=== PATIENT | male | born 1945 | race Caucasian/White ===

== ENCOUNTER 2018-11-09 13:11 | Inpatient (IN) | payer OTHER ==
[~2018-11-09] VITALS: Ht 175.3 cm; Wt 68.0 kg
[2018-11-09 13:19] VITALS: BP 125/50
[2018-11-09] MEDS ORDERED: KLOR-CON 1010 MEQ PO (13:36)
[2018-11-09] MEDS ORDERED: PLAVIX 75 MG TA75 M1 PO ×2 (13:36→13:43)
[2018-11-09] MEDS ORDERED: METFORMIN HCL500 MG PO (13:42)
[2018-11-09] MEDS ORDERED: SIMVASTATIN40 MG PO (13:43)
[2018-11-09] MEDS ORDERED: FLOMAX0.4 MG PO (13:43)
[2018-11-09] MEDS ORDERED: HYDROCODON-ACE1 EAC7 PO (13:44)
[2018-11-09 14:14] LABS: HEMOGLOBIN 15.5 gm/dL (14.0-18.0); MCH 30.5 pg (26.0-34.0); MCHC 33.7 g/dL (28.0-37.0); MCV 90.6 fL (80.0-100.0); MPV 8.6 fl. (7.2-11.1); NUCLEATED RBCS 0 /100WBC; PLATELET COUNT* 203 thou/uL (150-400); RBC 5.08 mil/uL (4.50-6.00); RDW-CV 14.1 % (10.5-14.5); WBC 10.8 thou/uL (4.0-11.0)
[2018-11-09 14:22] LABS: CALCIUM 9.3 mg/dL (8.5-10.1); CREATININE 1.8 mg/dL (0.6-1.3); POTASSIUM 4.6 mmol/L (3.5-5.1)
[2018-11-09 14:26] LABS: ALBUMIN 3.8 g/dL (3.4-5.0); TOTAL BILIRUBIN 1.3 mg/dL (<0.1-1.0); TOTAL PROTEIN 7.2 g/dL (6.4-8.2)
[2018-11-09 14:35] LABS: ABSOLUTE BASOPHILS 0.1 thou/uL (0.0-0.2); ABSOLUTE LYMPHOCYTES 0.8 thou/uL (0.8-5.3); ABSOLUTE MONOCYTES 0.3 thou/uL (0.0-1.2); ABSOLUTE NEUTROPHILS 9.6 thou/uL (1.6-8.1); PLATELET ESTIMATE ADEQUATE
[2018-11-09 15:03] LABS: URINE BILIRUBIN NEGATIVE (Negative); URINE BLOOD NEGATIVE (Negative); URINE CLARITY CLEAR; URINE COLOR YELLOW; URINE GLUCOSE-RANDOM NEGATIVE (Negative); URINE KETONES 2+ (Negative); URINE LEUKOCYTES-REFLEX NEGATIVE (Negative); URINE NITRITE-REFLEX NEGATIVE (Negative); URINE PROTEIN NEGATIVE (Negative); URINE SPECIFIC GRAVITY >= 1.030 (1.005-1.030); URINE UROBILINOGEN 0.2 E.U./dl (0.2-1.0)
--- NOTE | 2018-11-09 15:25 | NUR ---
TOOK OVER CARE ON PT.
[2018-11-09 16:20] VITALS: BP 122/59
--- NOTE | 2018-11-09 18:48 | NUR ---
PT ARRIVED TO FLOOR BY WHEEL CHAIR @ 1640. ABLE TO TRANSFER WITH SBA. REQUIRES ADDITIONAL TIME. ORIENTED TO ROOM. PT ALERT AND ORIENTED X 4. IVF INFUSING @ 150 MLS/HR. PT GIVEN IV MORPHINE FOR INTERMITTENT LEFT RIB PAIN/FX. DRESSING NOTED ON LEFT FOREARM-C/D/I. HOURLY ROUNDS MAINTAINED. CALL LIGHT WITHIN REACH.
[2018-11-09 21:18] VITALS: BP 167/59
[2018-11-10 04:13] LABS: ABSOLUTE EOSINOPHILS 0.2 thou/uL (0.0-0.7); ABSOLUTE LYMPHOCYTES 1.1 thou/uL (0.8-5.3); ABSOLUTE MONOCYTES 0.6 thou/uL (0.0-1.2); ABSOLUTE NEUTROPHILS 4.6 thou/uL (1.6-8.1); BASOPHILS 0.7 %; EOSINOPHILS 2.3 %; HEMATOCRIT 39.6 % (42.0-52.0); LYMPHOCYTES 17.2 %; MCH 30.1 pg (26.0-34.0); MCHC 32.9 g/dL (28.0-37.0); MCV 91.2 fL (80.0-100.0); MONOCYTES 9.8 %; MPV 8.6 fl. (7.2-11.1); NUCLEATED RBCS 0 /100WBC; PLATELET COUNT* 172 thou/uL (150-400); RBC 4.34 mil/uL (4.50-6.00); RDW-CV 13.9 % (10.5-14.5); WBC 6.6 thou/uL (4.0-11.0)
[2018-11-10 04:22] LABS: CALCIUM 7.9 mg/dL (8.5-10.1); CREATININE 1.5 mg/dL (0.6-1.3); POTASSIUM 4.4 mmol/L (3.5-5.1)
--- NOTE | 2018-11-10 08:17 | NUR ---
PT IS ABLE TO COMMUNICATE HIS NEEDS TO STAFF EFFECTIVELY. CURRENT PAIN MEDICATION REGIMEN HAS BEEN ADEQUATE FOR CONTROLLING HIS PAIN UP TO THIS TIME; HE HAS SIGNIFICANT INTERMITTENT LEFT RIB PAIN DUE TO RIB FRACTURES. ROUTINE CHEST CT SCHEDULED FOR THIS MORNING.
[2018-11-10 08:30] VITALS: BP 138/57
[2018-11-10 21:00] VITALS: BP 140/64
--- NOTE | 2018-11-11 07:59 | NUR ---
PATIENT SLEPT WELL THROUGHOUT THE NIGHT. VSS ON RA. NO C/O PAIN EXCEPT WHEN TURNING IN BED. NO REQUEST FOR PAIN MEDICATIONS. IV IN LEFT HAND-SL. USES BEDSIDE URINAL. PATIENT IS UP WITH SBA. PATIENT INSTRUCTED TO USE CALL LIGHT WHEN NEEDING ASSISTANCE. HOURLY ROUNDS MADE. WILL CONTINUE WITH PLAN OF CARE AND NURSING TO MONITOR.
[2018-11-11 08:15] VITALS: BP 159/67
[2018-11-11 17:03] VITALS: BP 153/73
--- NOTE | 2018-11-11 18:11 | NUR ---
ALERT AND ORIENTED X4. UP AD [place] IN ROOM. IV IS PATENT AND SALINE LOCKED. PAIN BEING MANAGED WITH PO PAIN MEDICATION. DENIES NAUSEA. TOLERATING DIET. AMBULATING IN HALLWAYS. VSS ON ROOM AIR. HOURLY ROUNDS HAVE BEEN MAINTAINED THORUGHOUT SHIFT. CALL LIGHT IS WITHIN REACH. NURSING WILL CONTINUE TO MONITOR.
[2018-11-11 20:25] VITALS: BP 151/45
--- NOTE | 2018-11-12 05:58 | NUR ---
PT SLEPT ON AND OFF THIS SHIFT. ASSESSMENT DOCUMENTED. MEDS GIVEN PER E-NOV. IV PATENT. PAIN MEDS GIVEN PER E-NOV. PT REPORTED ABOUT HALF WAY THOUGH THE NIGHT THAT HE HAS BEEN HALLUCINATING THE PAST 3 DAYS AND STATED THAT HE THINKS IT MIGHT BE THE PAIN MEDICATION BUT STATED HE STILL WANTED TO TAKE IT BECAUSE IT HELPED. DR NOTIFIED, NO ORDERS RECIEVED. WILL CONTINUE WITH PLAN OF CARE.
[2018-11-12 08:10] VITALS: BP 163/62
[2018-11-12 11:24] VITALS: BP 163/62
[2018-11-12 11:28] VITALS: BP 163/62
[2018-11-12 11:57] VITALS: BP 163/62
--- NOTE | 2018-11-12 11:58 | NUR ---
PATIENT LEFT UNIT AMBULATORY WITH NURSING STAFF AT 1155. IV DC'D. EDUCATED PATIENT AND FRIEND ON NEW MED SCRIPTS AND DISCHARGE INSTRUCTIONS. PATIENT AND FRIEND VERBALIZED UNDERSTANDING. ALL BELONGINGS LEFT WITH PATIENT.
== END 2018-11-12 12:00 | disposition home or self-care (01) | DRG 184 ==
LOC: M.ERS 13:11 → M.TBA-ER 15:41 → M.ORTHSURG 15:41
PROVIDERS: Personal Emergency Response Attendant; ADMIT Internal Medicine
DX: S22.42XA Multiple fractures of ribs, left side, initial encounter for closed fracture (principal); N17.9 Acute kidney failure, unspecified; E11.22 Type 2 diabetes mellitus with diabetic chronic kidney disease; I12.9 Hypertensive chronic kidney disease with stage 1 through stage 4 chronic kidney disease, or unspecified chronic kidney disease; E86.0 Dehydration; F17.210 Nicotine dependence, cigarettes, uncomplicated; N18.9 Chronic kidney disease, unspecified; W01.0XXA Fall on same level from slipping, tripping and stumbling without subsequent striking against object, initial encounter; Z88.0 Allergy status to penicillin; Y93.89 Activity, other specified; Y92.89 Other specified places as the place of occurrence of the external cause; Y99.8 Other external cause status; Z79.899 Other long term (current) drug therapy